=== PATIENT | female | born 1980 | race Caucasian/White ===

== ENCOUNTER 2017-01-01 05:36 | Inpatient (IN) | payer OTHER ==
[~2017-01-01] VITALS: Ht 162.6 cm; Wt 79.5 kg
--- NOTE | 2017-01-01 05:40 | NSTRPT ---
NST Information Datetime Report Generated by CPN: 01/01/2017 05:40 Datetime: 12/26/2016 14:18 NST Information EGA: 39.1 Test Number: 5 Time on Monitor: 12/26/2016 14:41 Time off Monitor: 12/26/2016 15:07 NST Duration (Min): 26 Reason for NST: Diabetes Mellitus; Other Reason for NST Other: A1DM Test and Monitor Explained: Monitor Explained; Test Explained; Verbalized Understanding Pulse: 88 Resp: 18 SBP: 94 DBP: 51 Test Evaluation NST Interventions: None Patient States Movement: Present Contraction Frequency: NONE FHR Baseline : 135 Variability: Moderate 6-25bpm Accelerations: 15X15 Decelerations: None FHR Category: Category I NST Results: Reactive Comments: To u/s. ULYSSES 18.6cm. CEPHALIC. FBS 77. 1515-Pt home undelivered with labor precautions, kick count instructions reviewed and follo w up NST appt. given. States understanding and denies futher questions at this time. Electronically Signed By E-Signature: with User ID: [id number] Datetime: 12/23/2016 14:37 NST Information EGA: 38.5 NST Duration (Min): 40 Datetime: 12/19/2016 14:18 NST Information EGA: 38.1 NST Duration (Min): 55 Datetime: 12/16/2016 13:10 NST Information EGA: 37.5 NST Duration (Min): 128 Datetime: 12/12/2016 10:28 NST Information EGA: 37.1 Datetime: 12/12/2016 10:24 NST Duration (Min): 21
[2017-01-01 05:53] VITALS: Ht 162.6 cm; Wt 79.5 kg
[2017-01-01 05:54] VITALS: BP 104/52; PULSE 90; RESP 16
[2017-01-01] MEDS ORDERED: CEFAZOLIN 2 GM/50 ML (PMX) 50 ML IV SCH (06:00)
[2017-01-01] MEDS ORDERED: MISOPROSTOL 200 MCG TAB PR PRN ×2 (06:00→12:30)
[2017-01-01] MEDS ORDERED: METHYLERGONOVINE 0.2 MG INJ IM PRN ×2 (06:00→12:30)
[2017-01-01] MEDS ORDERED: OXYTOCIN 30 UNITS/LR 500 ML IV SCH (06:00)
[2017-01-01] MEDS ORDERED: CARBOPROST 250 MCG INJ IM PRN ×2 (06:00→12:30)
[2017-01-01] MEDS ORDERED: OXYTOCIN 30 UNITS/LR 500 ML IV PRN ×2 (06:00→12:30)
[2017-01-01 06:26] LABS: ADD SCAN DIFF NO
[2017-01-01] MEDS ORDERED: LACTATED RINGER'S 1,000 ML IV SCH (06:30)
[2017-01-01 06:38] LABS: BASOPHILS % 0.2 % (0.0-2.0); EOSINOPHILS # 0.2 10^3/ul (0.0-0.5); EOSINOPHILS % 1.6 % (0.0-7.0); HEMATOCRIT 37.4 % (37.0-47.0); HEMOGLOBIN 12.3 g/dl (12.0-16.0); LYMPHOCYTES # 1.1 10^3/ul (0.8-2.9); LYMPHOCYTES % 12.5 % (15.0-51.0); MEAN CORPUSCULAR HEMOGLOBIN 30.6 pg (29.0-33.0); MEAN CORPUSCULAR HGB CONC 32.9 g/dl (32.0-37.0); MEAN PLATELET VOLUME 10.7 fl (7.4-10.4); MONOCYTE # 0.4 10^3/ul (0.3-0.9); MONOCYTES % 4.1 % (0.0-11.0); NEUTROPHIL # 7.1 10^3/ul (1.6-7.5); NEUTROPHILS % 77.7 % (39.0-77.0); PLATELET COUNT 338 10^3/UL (140-415); RED BLOOD COUNT 4.02 10^6/ul (4.20-5.40); RED CELL DISTRIBUTION WIDTH 15.7 % (11.5-14.5); WHITE BLOOD COUNT 9.1 10^3/ul (4.8-10.8)
[2017-01-01 07:00] LABS: INR 0.86; PROTIME 11.7 Sec (12.2-14.2); PT RATIO 0.9
[2017-01-01] MEDS ORDERED: OXYTOCIN 30 UNITS/LR 500 ML BAG IV ONE (07:00)
[2017-01-01] MEDS ORDERED: OXYTOCIN 10 UNIT INJ ONE (08:05)
[2017-01-01] MEDS ORDERED: morphine SULFATE/PF (10 MG/10 ML) INJ ONE (08:05)
[2017-01-01] MEDS ORDERED: ONDANSETRON 4 MG INJ ONE (08:05)
[2017-01-01] MEDS ORDERED: PHENYLephrine (100 MCG/ML) 5ML SYG ONE ×3 (08:05→08:54)
--- NOTE | 2017-01-01 08:21 | HP ---
Date/Time of Note Date/Time of Note DATE: 01/01/17 TIME: 08:14 OB - History Hx of Present Free Text/Dictation 36 years old white female 1 para 0 admitted to [facility] at 40 weeks gestation her is complicated with gestational diabetes diet-controlled requesting delivery declined induction and trial of labor pros and cons regarding the section versus vaginal delivery discussed with the patient extensively complication of the section including but not limited to bowel and bladder injury infection hemorrhage and hematoma has been discussed with her she would like to proceed with the operative 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 Rubella: immune RPR/VDRL: Negative GBS Status: Negative HBsAG: Negative OB Admission Exam Vital Signs Vital Signs Vital Signs Date Time Temp Pulse Resp B/P Pulse Ox O2 Delivery O2 Flow Rate FiO2 01/01/17 05:54 97.6 90 16 104/52 Room Air Physical Exam HEENT: WNL Heart: Rhythm Normal Abdomen: WNL Extremities: Normal Reflexes: Normal Cervical Dilatation: None Heart Rate: 130's Accelerations: Accelerations Present Decelerations: No Decelerations Last 72 hours Lab Results CBC & BMP 01/01/17 06:05 SANJAY AVALOS MD Jan 01, 2017 08:20
[2017-01-01] MEDS ORDERED: METOCLOPRAMIDE 10 MG INJ ONE (08:55)
--- NOTE | 2017-01-01 09:45 | OPR ---
Operative Report Planned Procedure Free Text/Dictation 36 years old white female 1 para EDC January 01, 2017 admitted to [facility] with request for elective primary section due to tocophobia this patient has been under the care of the [facility] medical her was complicated with gestational diabetes diet-controlled Procedure date Jan 01, 2017 Procedure(s) Primary Performed by: SANJAY AVALOS MD Assisting provider: SHANNAN BRAR MD Anesthesiologist: KORTNEY GANN MD Pre-procedure diagnosis Term request for elective low line placenta previa. Anesthesia Type: spinal Procedure Description Under satisfactory spinal [] anesthesia, the patient was prepped and draped and placed in a supine position, tilted to the left. Pfannenstiel incision was made , carried through the subcutaneous tissue. Bleeders brought under control with electrocautery. Fascia incised to the length of the incision. Rectus muscles from the fascia, divided midline. Peritoneum exposed, entered through a transverse incision. Exploration of abdomen revealed gravid uterus with evident of endometriosis and 2 cm diameter defect in the lower segment of the uterus above the low line placenta attachment. Bladder flap was developed. Transverse incision was made in the lower segment of the uterus. Amniotic sac ruptured. Clear amniotic fluid noted due to low-lying placenta needed to push the placenta aside to deliver the baby. Live baby girl was delivered from occiput transverse ,] Nasal oropharyngeal suction was performed. The baby was handed to the team for immediate attention. placenta was delivered manually intact. Uterine cavity was cleaned with wet sponge and drainage established. Uterus closed in 2 layers using Monocryl #1 [] in continuous fashion. Peritoneal cavity irrigated with warm saline. Sponge, needle and instrument count reported to be correct. Abdominal peritoneum closed with [2-0 chromic cat] continuously. Rectus muscle approximated with [interrupted 2-0 chromic catgut]. Fascia closed with [#1 PDS], and skin closed with 3-0 Monocryl subcuticular estimated blood loss [700 cc]. Urine bag contained 200 []mL of clear urine patient tolerated procedure transferred to recovery room in good condition. Post-Procedure Post-procedure diagnosis Anterior low-lying placenta previa Findings: Live Baby girl [], Apgars [9] and [] 9, weight [], position [occiput transverse] , [] presentation vertex Complications: None Pt Condition post procedure: stable Physician Certification I, the undersigned physician, hereby certify that I have discussed the procedure described in this consent form with this patient (or the patient's legal surgical sales representative), including: * The risk and benefits of the procedure; * Any adverse reactions that may reasonably be expected to occur; * Any alternative efficacious methods of treatment which may be medically viable ; * The potential problems that may occur during recuperation; * Potential for blood transfusion and associated risks/benefits; and * Any research or economic interest I may have regarding this treatment. I further certify that the patient/legally responsible person was encouraged to ask question and that all questions were answered. SANJAY AVALOS MD Jan 01, 2017 09:42
[2017-01-01] MEDS ORDERED: morphine 2 MG INJ IV PRN (10:00)
[2017-01-01] MEDS ORDERED: ONDANSETRON 4 MG INJ IV PRN (10:00)
[2017-01-01] MEDS ORDERED: DIPHENHYDRAMINE 50 MG INJ IV PRN (10:00)
[2017-01-01] MEDS ORDERED: NALOXONE (0.4 MG/ML) INJ IV PRN (10:00)
[2017-01-01] MEDS ORDERED: OXYCODONE/ACETAMINOPHEN (5/325) TAB PO PRN ×2 (12:30)
[2017-01-01] MEDS ORDERED: ACETAMINOPHEN/CODEINE #3 TAB PO PRN ×2 (12:30)
[2017-01-01] MEDS ORDERED: LANOLIN 7 GM TUBE TOP PRN (12:30)
[2017-01-01] MEDS ORDERED: CEFAZOLIN 1 GM/50 ML (PMX) 50 ML IVPB SCH (12:30)
[2017-01-01 12:40] VITALS: BP 111/72; PULSE 87; RESP 16
[2017-01-01] MEDS: OXYTOCIN 30 UNITS/LR 500 ML IV SCH ×3 (13:25→22:12)
[2017-01-01 16:00] VITALS: BP 106/70; PULSE 88; RESP 20
[2017-01-01 19:45] VITALS: BP 90/54; PULSE 93; RESP 18
[2017-01-01] MEDS: SENNA/DOCUSATE NA (8.6MG/50MG) TAB PO SCH (21:00)
[2017-01-01 23:39] VITALS: BP 93/50; PULSE 81; RESP 20
[2017-01-01] MEDS: KETOROLAC 30 MG INJ IV PRN (23:39)
[2017-01-02] MEDS: OXYTOCIN 30 UNITS/LR 500 ML IV SCH ×6 (00:26→20:26)
[2017-01-02] MEDS: LACTATED RINGER'S 1,000 ML IV SCH ×3 (02:01→17:25)
[2017-01-02 04:00] VITALS: BP 91/50; PULSE 87; RESP 18
[2017-01-02] MEDS: KETOROLAC 30 MG INJ IV PRN (05:43)
[2017-01-02] MEDS: IBUPROFEN 600 MG TAB PO SCH ×3 (06:00→18:23)
[2017-01-02 08:30] VITALS: BP 98/50; PULSE 81; RESP 18
[2017-01-02 08:44] LABS: ADD SCAN DIFF NO
[2017-01-02 08:48] LABS: BASOPHILS % 0.4 % (0.0-2.0); EOSINOPHILS % 0.3 % (0.0-7.0); HEMATOCRIT 28.9 % (37.0-47.0); HEMOGLOBIN 9.6 g/dl (12.0-16.0); LYMPHOCYTES # 0.9 10^3/ul (0.8-2.9); MEAN CORPUSCULAR HGB CONC 33.2 g/dl (32.0-37.0); MEAN CORPUSCULAR VOLUME 93.2 fl (82.0-101.0); MEAN PLATELET VOLUME 10.7 fl (7.4-10.4); MONOCYTE # 0.5 10^3/ul (0.3-0.9); NEUTROPHIL # 9.1 10^3/ul (1.6-7.5); PLATELET COUNT 317 10^3/UL (140-415); RED CELL DISTRIBUTION WIDTH 15.7 % (11.5-14.5); WHITE BLOOD COUNT 10.8 10^3/ul (4.8-10.8)
[2017-01-02] MEDS: SENNA/DOCUSATE NA (8.6MG/50MG) TAB PO SCH ×2 (13:04→21:17)
[2017-01-02 16:30] VITALS: BP 108/50; PULSE 81; RESP 18
[2017-01-02 20:00] VITALS: BP 95/51; PULSE 86; RESP 18
[2017-01-03] MEDS: OXYTOCIN 30 UNITS/LR 500 ML IV SCH ×4 (00:26→12:26)
[2017-01-03 03:59] VITALS: BP 104/62; PULSE 83; RESP 18
[2017-01-03] MEDS: IBUPROFEN 600 MG TAB PO SCH ×5 (05:30→23:30)
[2017-01-03 08:30] VITALS: BP 96/57; PULSE 83; RESP 18
[2017-01-03] MEDS: SENNA/DOCUSATE NA (8.6MG/50MG) TAB PO SCH ×2 (12:03→21:17)
--- NOTE | 2017-01-03 12:21 | PN ---
Date/Time of Note Date/Time of Note DATE: 01/03/17 TIME: 12:18 OB Subjective Subjective Subjective Post day 2 Patient is doing well, Ambulatory She is afebrile Abdomen is soft , Fundus is firm Moderate amount of lochia Breasts are soft, Nipples are intact No calf tenderness. Incision is healing well. Breast feeding the new born. OB Objective Objective Objective Current Medications Medications (Trade) Dose Ordered Sig/Chris Route PRN Reason Start Time Stop Time Status Last Admin Dose Admin Cefazolin Sodium/ Dextrose 50 ml @ 100 mls/hr ONCE IV 01/01/17 06:00 01/01/17 12:30 DC 01/01/17 10:06 Oxytocin/Lactated Ringer's 500 ml @ 125 mls/hr ONCE IV 01/01/17 06:00 01/01/17 12:30 DC 01/01/17 10:22 Oxytocin/Lactated Ringer's 500 ml @ 0 mls/hr ONCE PRN IV For Hemorrhage Management 01/01/17 06:00 01/01/17 12:30 DC Methylergonovine Maleate (Methergine) 0.2 mg ONCE PRN IM VAGINAL BLEEDING 01/01/17 06:00 01/01/17 12:30 DC Carboprost Tromethamine (Hemabate) 250 mcg ONCE PRN IM VAGINAL BLEEDING 01/01/17 06:00 01/01/17 12:30 DC Misoprostol 1000 mcg 1,000 mcg ONCE PRN [place] VAGINAL BLEEDING 01/01/17 06:00 01/01/17 12:30 DC Lactated Ringer's (Lr) 1,000 ml @ 125 mls/hr Q8H IV 01/01/17 06:30 01/01/17 12:29 DC 01/01/17 06:36 Phenylephrine HCl (Nathaniel-Synephrine Inj Syg) 500 mcg STK-MED ONCE .ROUTE 01/01/17 08:05 01/01/17 08:06 DC Ondansetron HCl (Zofran Inj) 4 mg STK-MED ONCE .ROUTE 01/01/17 08:05 01/01/17 08:06 DC Oxytocin (Oxytocin) 10 units STK-MED ONCE .ROUTE 01/01/17 08:05 01/01/17 08:06 DC Morphine Sulfate (Duramorph) 10 mg STK-MED ONCE .ROUTE 01/01/17 08:05 01/01/17 08:06 DC Phenylephrine HCl (Nathaniel-Synephrine Inj Syg) 500 mcg STK-MED ONCE .ROUTE 01/01/17 08:32 01/01/17 08:33 DC Phenylephrine HCl (Nathaniel-Synephrine Inj Syg) 500 mcg STK-MED ONCE .ROUTE 01/01/17 08:54 01/01/17 08:55 DC Metoclopramide HCl (Reglan) 10 mg STK-MED ONCE .ROUTE 01/01/17 08:55 01/01/17 08:56 DC Naloxone HCl (Narcan) 0.1 mg Q2M PRN IV FOR RESP RATE 8 OR LESS 01/01/17 10:00 01/02/17 09:59 DC Ketorolac Tromethamine (Toradol) 30 mg Q6H PRN IV PAIN 01/01/17 10:00 01/02/17 09:59 DC 01/02/17 05:43 Morphine Sulfate (morphine) 2 mg Q3H PRN IV PAIN LEVEL 1-5 01/01/17 10:00 01/02/17 09:59 DC Diphenhydramine HCl (Benadryl) 25 mg Q6H PRN IV ITCHING 01/01/17 10:00 01/02/17 09:59 DC Ondansetron HCl (Zofran Inj) 4 mg Q6H PRN IV NAUSEA AND/OR VOMITING 01/01/17 10:00 01/02/17 09:59 DC 01/01/17 18:09 Miscellaneous Information (* Miscellaneous Pharmacy Order) Duramorph: 0.2 mg Spi... GIVEN XX 01/01/17 10:00 01/01/17 12:29 DC Acetaminophen/ Codeine Phosphate (Tylenol No.3) 1 tab Q4H PRN PO PAIN LEVEL 4-6 01/01/17 12:30 Acetaminophen/ Codeine Phosphate (Tylenol No.3) 2 tab Q4H PRN PO PAIN LEVEL 7-10 01/01/17 12:30 Oxycodone/ Acetaminophen (Percocet (5/ 325)) 1 tab Q4H PRN PO PAIN LEVEL 4-6 01/01/17 12:30 Oxycodone/ Acetaminophen (Percocet (5/ 325)) 2 tab Q4H PRN PO PAIN LEVEL 7-10 01/01/17 12:30 Ibuprofen (Motrin) 600 mg Q6 PO 01/02/17 06:00 01/03/17 12:03 Simethicone (Mylicon) 160 mg Q8H PRN PO DISTENSION/GAS/BLOATING 01/01/17 12:30 01/02/17 13:05 Senna/Docusate Sodium (Senokot-S) 1 tab BID PO 01/01/17 21:00 01/03/17 12:03 Lanolin (Jrh-P-Gtcrxt) 1 applic BEDSIDE MEDICATION PRN TOP BEDSIDE FOR AURE TO NIPPLES 01/01/17 12:30 01/02/17 13:03 Diphtheria/ Tetanus/Acell Pertussis 0.5 ml 0.5 ml ONCE ONCE IM* 01/04/17 09:00 01/04/17 09:01 Oxytocin/Lactated Ringer's 500 ml @ 0 mls/hr ONCE PRN IV For Hemorrhage Management 01/01/17 12:30 Methylergonovine Maleate (Methergine) 0.2 mg ONCE PRN IM VAGINAL BLEEDING 01/01/17 12:30 Carboprost Tromethamine (Hemabate) 250 mcg ONCE PRN IM VAGINAL BLEEDING 01/01/17 12:30 Misoprostol 1000 mcg 1,000 mcg ONCE PRN [place] VAGINAL BLEEDING 01/01/17 12:30 Cefazolin Sodium 50 ml @ 100 mls/hr ONCE IVPB 01/01/17 12:30 01/01/17 12:59 DC 01/01/17 18:05 Oxytocin/Lactated Ringer's 500 ml @ 125 mls/hr Q4H IV 01/01/17 12:26 01/01/17 22:12 Lactated Ringer's (Lr) 1,000 ml @ 125 mls/hr Q8H IV 01/02/17 02:00 01/02/17 18:57 DC 01/02/17 02:01 Oxytocin/Lactated Ringer's 60 unit STK-MED ONCE IV 01/01/17 07:00 01/02/17 17:44 DC SHANNAN BRAR MD Jan 03, 2017 12:21
[2017-01-03 15:46] VITALS: BP 93/53; PULSE 95; RESP 18
[2017-01-03 19:45] VITALS: BP 111/56; PULSE 82; RESP 19
[2017-01-04 03:40] VITALS: BP 103/58; PULSE 70; RESP 19
[2017-01-04] MEDS: IBUPROFEN 600 MG TAB PO SCH ×2 (05:25→12:47)
[2017-01-04 08:00] VITALS: BP 119/58; PULSE 67; RESP 16
[2017-01-04] MEDS ORDERED: DIPHTH/TET/ACEL PERTUSS (ADULT) 0.5 ML VIAL IM* ONE (09:00)
[2017-01-04] MEDS: SENNA/DOCUSATE NA (8.6MG/50MG) TAB PO SCH (09:15)
[2017-01-04] MEDS ORDERED: Oxycodone/Acetamin (5/325) PO (13:40)
--- NOTE | 2017-01-04 13:40 | PD.PPDC ---
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
--- NOTE | 2017-01-04 13:43 | DS ---
Date/Time of Note Date/Time of Note DATE: 01/04/17 TIME: 13:41 Obstetrical Discharge Record Final Diagnosis Final Diagnosis: Term delivered Section Section: Primary Primary Indication Elective,per pt. Complications Augmentation: No Induction: No Condition on Discharge Physical Assessment Last Vitals: T=97.3 BP 119/58 Voiding: Yes Bowel Movement: Yes Breast: Filling Fundus: Firm Abdomen and Incision: Clean, dry and intact. No binu, only glue. Calf Tenderness: No Patient Condition: Good ARTURO SMITH MD Jan 04, 2017 13:42
== END 2017-01-04 15:30 | disposition home or self-care (01) | DRG 766 ==
LOC: L-D 05:36 → PP1 12:34
PROVIDERS: ADMIT Obstetrics & Gynecology; ATTEND Obstetrics & Gynecology
PROC: 10D00Z1 Extraction of Products of Conception, Low, Open Approach (ICD-10-PCS; principal; 2017-01-01 07:30)
DX: O24.429 Gestational diabetes mellitus in childbirth, unspecified control (principal); O48.0 Post-term pregnancy; Z3A.40 40 weeks gestation of pregnancy; Z37.0 Single live birth
CPT/HCPCS: 82947; 85025; 85610; 85730; 86592; 86850; 86900; 86901; 87340; 90715; 99464; J0690; J1885; J2210; J2274; J2370; J2405; J2590; J2765; J7120

== ENCOUNTER 2018-06-05 12:47 | Emergency (ER) | END 2018-06-05 14:59 | disposition home or self-care (01) ==

== ENCOUNTER 2018-06-07 09:45 | Emergency (ER) | END 2018-06-07 12:05 | disposition home or self-care (01) ==

== ENCOUNTER 2018-06-16 15:43 | Emergency (ER) | END 2018-06-16 17:15 | disposition home or self-care (01) ==